=== PATIENT | male | born 2000 | race Caucasian/White ===

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

== ENCOUNTER 2023-03-03 23:19 | Emergency (ER) | payer OTHER ==
[~2023-03-03] VITALS: Ht 167.6 cm; Wt 61.0 kg
[~2023-03-03 23:19] MED LIST changes: +BACTRIM DS1 TAB PO; +CEPHALEXIN500 M1 PO; +MEDDOSEPAK PO; +TORADOL PO
[2023-03-03 23:51] VITALS: BP 122/86
[2023-03-04] VITALS: BP 126/86
[2023-03-04 00:15] VITALS: BP 128/86
[2023-03-04 01:37] VITALS: BP 126/66
== END 2023-03-04 01:47 | disposition home or self-care (01) | DRG 605 ==
LOC: ED 23:19
PROC: 0HQ1XZZ Repair Face Skin, External Approach (ICD-10-PCS; principal; 2023-03-04)
DX: S01.81XA Laceration without foreign body of other part of head, initial encounter (principal); S00.01XA Abrasion of scalp, initial encounter; V57.5XXA Driver of pick-up truck or van injured in collision with fixed or stationary object in traffic accident, initial encounter